=== PATIENT | female | born 1960 | race African-American/Black ===

== ENCOUNTER 2017-10-13 15:42 | Outpatient (CLI) | payer MEDICARE, MEDICAID | END 2017-10-13 15:43 | disposition home or self-care (01) | LOC: BICMAMMO 15:42 | PROVIDERS: ATTEND Internal Medicine | DX: Z12.31 Encounter for screening mammogram for malignant neoplasm of breast (principal); Z80.3 Family history of malignant neoplasm of breast | CPT/HCPCS: 77063; 77067 ==

== ENCOUNTER 2017-10-13 16:26 | Outpatient (CLI) | payer MEDICARE, MEDICAID | END 2017-10-13 16:27 | disposition home or self-care (01) | LOC: BICRAD 16:26 | PROVIDERS: ATTEND Anesthesiology | DX: M47.896 Other spondylosis, lumbar region (principal) | CPT/HCPCS: 72100 ==

== ENCOUNTER 2017-11-20 14:09 | Outpatient (CLI) | payer MEDICARE, MEDICAID | END 2017-11-20 14:10 | disposition home or self-care (01) | LOC: BICRAD 14:09 | PROVIDERS: ATTEND Anesthesiology | DX: M25.562 Pain in left knee (principal); M25.561 Pain in right knee; M25.571 Pain in right ankle and joints of right foot; M17.11 Unilateral primary osteoarthritis, right knee; M25.771 Osteophyte, right ankle; Z96.652 Presence of left artificial knee joint; Z98.1 Arthrodesis status ==

== ENCOUNTER 2018-08-02 14:50 | Outpatient (CLI) | payer MEDICARE, MEDICAID ==
--- NOTE | 2018-08-02 16:04 | RAD ---
LEFT KNEE FOUR VIEWS: History: Left knee pain. Comparison: 12-25-08 FINDINGS: Post op total knee arthroplasty changes with revisions since the prior study. No evidence for disloca tion. No periprosthetic fracture. No dislocation. IMPRESSION: Status post total knee arthroplasty changes. No acute process. POS: [facility]
== END 2018-08-02 14:51 | disposition home or self-care (01) ==
LOC: BICRAD 14:50
DX: M25.562 Pain in left knee (principal); Z96.652 Presence of left artificial knee joint

== ENCOUNTER 2019-02-22 12:43 | Outpatient (CLI) | payer MEDICARE, MEDICAID ==
--- NOTE | 2019-02-22 13:30 | MMO ---
Bilateral MAMMO Bilat Screen [facility]. CLINICAL HISTORY: Patient is 58 years old and is seen for screening. The patient has the following family history of breast cancer: niece, at age 30, malignant (generic). The patient has no personal history of cancer. VIEWS: The views performed were: bilateral craniocaudal with tomosynthesis and bilateral mediolateral oblique with tomosynthesis. FILMS COMPARED: The present examination has been compared to prior imaging studies performed at [facility] on 03/17/2012, 02/02/2014, 02/21/2016 and 10/13/2017. This study has been interpreted with the assistance of computer-aided detection. MAMMOGRAM FINDINGS: There are scattered fibroglandular densities. There are stable benign appearing calcifications seen in both breasts. There are no suspicious masses, suspicious calcifications, or new areas of architectural distortion. IMPRESSION: THERE IS NO MAMMOGRAPHIC EVIDENCE OF MALIGNANCY. A ROUTINE FOLLOW-UP MAMMOGRAM IN 1 YEAR IS RECOMMENDED. THE RESULTS OF THIS EXAM WERE SENT TO THE PATIENT. ACR BI-RADS Category 2 - Benign finding MAMMOGRAPHY NOTE: 1. A negative mammogram report should not delay a biopsy if a dominant of clinically suspicious mass is present. 2. Approximately 10% to 15% of breast cancers are not detected by mammography. 3. Adenosis and dense breasts may obscure an underlying neoplasm. Reported by: SUELLEN ENRIQUE MD Electonically Signed: [id number]
== END 2019-02-22 12:44 | disposition home or self-care (01) ==
LOC: BICMAMMO 12:43
PROVIDERS: ATTEND Internal Medicine
DX: Z12.31 Encounter for screening mammogram for malignant neoplasm of breast (principal); Z80.3 Family history of malignant neoplasm of breast
CPT/HCPCS: 77063; 77067

== ENCOUNTER 2019-07-18 09:16 | Outpatient (CLI) | payer MEDICARE, MEDICAID ==
--- NOTE | 2019-07-18 14:41 | NM ---
WHOLE BODY BONE SCAN WITH TRIPLE PHASE IMAGING FOR THE KNEES: HISTORY: Bilateral knee pain, orthopedic prosthetic device/graft. FINDINGS: No abnormal blood flow is seen through the knee. Delayed images demonstrate great uptake in the righ t knee, both ankles, and both shoulders consistent with degenerative changes. There are postop peralta es of left knee arthroplasty. Tracer excretion through the kidneys is within normal limits. Focal i ncreased uptake in the right mandible is consistent with periodontal disease. IMPRESSION: 1. No evidence of infection or loosening in the left knee prosthesis. 2. Findings are consistent with right knee osteoarthritis. POS: [facility]
== END 2019-07-18 09:17 | disposition home or self-care (01) ==
LOC: NM 09:16
PROVIDERS: ATTEND Family Medicine
DX: T84.84XA Pain due to internal orthopedic prosthetic devices, implants and grafts, initial encounter (principal); M25.562 Pain in left knee; Z96.652 Presence of left artificial knee joint; Z91.81 History of falling
CPT/HCPCS: 78315; A9503

== ENCOUNTER 2020-04-10 10:48 | Outpatient (CLI) | payer MEDICARE, MEDICAID ==
--- NOTE | 2020-04-10 11:43 | MMO ---
Bilateral MAMMO Bilat Screen [facility]. CLINICAL HISTORY: Patient is 59 years old and is seen for screening. The patient has the following family history of breast cancer: niece, at age 30, malignant (generic). The patient has no personal history of cancer. VIEWS: The views performed were: bilateral craniocaudal with tomosynthesis and bilateral mediolateral oblique with tomosynthesis. FILMS COMPARED: The present examination has been compared to prior imaging studies performed at [facility] on 02/02/2014, 02/21/2016, 10/13/2017 and 02/22/2019. This study has been interpreted with the assistance of computer-aided detection. MAMMOGRAM FINDINGS: There are scattered fibroglandular densities. Benign calcifications are noted bilaterally. Nodularity is stable. There are no suspicious masses, suspicious calcifications, or new areas of architectural distortion. IMPRESSION: THERE IS NO MAMMOGRAPHIC EVIDENCE OF MALIGNANCY. A ROUTINE FOLLOW-UP MAMMOGRAM IN 1 YEAR IS RECOMMENDED. THE RESULTS OF THIS EXAM WERE SENT TO THE PATIENT. ACR BI-RADS Category 2 - Benign finding MAMMOGRAPHY NOTE: 1. A negative mammogram report should not delay a biopsy if a dominant of clinically suspicious mass is present. 2. Approximately 10% to 15% of breast cancers are not detected by mammography. 3. Adenosis and dense breasts may obscure an underlying neoplasm. Reported by: NORRIS BLACK MD Electonically Signed: [id number]
== END 2020-04-10 10:49 | disposition home or self-care (01) ==
LOC: BICMAMMO 10:48
PROVIDERS: ATTEND Nurse Practitioner Family
DX: Z12.31 Encounter for screening mammogram for malignant neoplasm of breast (principal); Z80.3 Family history of malignant neoplasm of breast
CPT/HCPCS: 77063; 77067

== ENCOUNTER 2020-10-26 14:52 | Outpatient (CLI) | payer MEDICARE, MEDICAID | END 2020-10-26 14:53 | disposition home or self-care (01) | LOC: BICRAD 14:52 | PROVIDERS: ATTEND Nurse Practitioner Family | DX: M79.671 Pain in right foot (principal); M79.641 Pain in right hand; M19.071 Primary osteoarthritis, right ankle and foot; M18.11 Unilateral primary osteoarthritis of first carpometacarpal joint, right hand; M19.041 Primary osteoarthritis, right hand; Z98.1 Arthrodesis status ==

== ENCOUNTER 2021-03-20 14:52 | Outpatient (CLI) | payer MEDICARE, MEDICAID | END 2021-03-20 14:53 | disposition home or self-care (01) | LOC: BICRAD 14:52 | PROVIDERS: ATTEND Nurse Practitioner Family | DX: M25.512 Pain in left shoulder (principal) ==

== ENCOUNTER 2021-04-23 13:33 | Outpatient (CLI) | payer MEDICARE, MEDICAID | END 2021-04-23 13:34 | disposition home or self-care (01) | LOC: BICMAMMO 13:33 | PROVIDERS: ATTEND Nurse Practitioner Family | DX: Z12.31 Encounter for screening mammogram for malignant neoplasm of breast (principal); Z80.3 Family history of malignant neoplasm of breast | CPT/HCPCS: 77063; 77067 ==

== ENCOUNTER 2021-11-08 07:37 | Outpatient (CLI) | payer MEDICARE, MEDICAID | END 2021-11-08 07:38 | disposition home or self-care (01) | LOC: BICMRI 07:37 | PROVIDERS: ATTEND Registered Nurse Pain Management | DX: M17.11 Unilateral primary osteoarthritis, right knee (principal); S83.241A Other tear of medial meniscus, current injury, right knee, initial encounter; M71.21 Synovial cyst of popliteal space [Baker], right knee; M67.461 Ganglion, right knee ==

== ENCOUNTER 2022-05-14 14:18 | Outpatient (CLI) | payer MEDICARE, MEDICAID | END 2022-05-14 14:19 | disposition home or self-care (01) | LOC: BICRAD 14:18 | PROVIDERS: ATTEND Nurse Practitioner Family | DX: M54.50 Low back pain, unspecified (principal); M47.816 Spondylosis without myelopathy or radiculopathy, lumbar region | CPT/HCPCS: 72110 ==

== ENCOUNTER 2023-10-07 11:56 | Outpatient (CLI) | payer MEDICARE | END 2023-10-07 11:57 | disposition home or self-care (01) | LOC: BICMAMMO 11:56 | PROVIDERS: ATTEND Nurse Practitioner Family | DX: Z12.31 Encounter for screening mammogram for malignant neoplasm of breast (principal); N63.20 Unspecified lump in the left breast, unspecified quadrant; Z80.3 Family history of malignant neoplasm of breast | CPT/HCPCS: 77063; 77067 ==

== ENCOUNTER 2023-10-13 11:09 | Outpatient (CLI) | payer MEDICARE | END 2023-10-13 11:10 | disposition home or self-care (01) | LOC: BICULT 11:09 | PROVIDERS: ATTEND Nurse Practitioner Family | DX: N63.20 Unspecified lump in the left breast, unspecified quadrant (principal) ==

== ENCOUNTER → 2023-11-13 | Day surgery (SDC) | payer MEDICARE | LOC: BICULT 12:48 | PROVIDERS: ATTEND Nurse Practitioner Family | PROC: 0H9U3ZX Drainage of Left Breast, Percutaneous Approach, Diagnostic (ICD-10-PCS; principal; 2023-11-13) | DX: R92.8 Other abnormal and inconclusive findings on diagnostic imaging of breast (principal) | CPT/HCPCS: 19083; 88305 ==

== ENCOUNTER 2024-05-02 05:59 | Day surgery (SDC) | payer MEDICARE, OTHER ==
[2024-05-02] MEDS ORDERED: Ketamine In 0.9 % NaCl 50 MG/5 ML SYRINGE ONE (07:36)
[2024-05-02] MEDS ORDERED: Midazolam HCl 2 mg/2 ml Vial ONE (07:39)
[2024-05-02] MEDS ORDERED: PROPOFOL 20 ML ONE ×2 (07:40→08:05)
== END 2024-05-02 09:15 | disposition home or self-care (01) ==
LOC: SDC 05:59 → UNDOADMIN 06:06 → SURG A 06:06 → SDC 09:15 → UNDODISIN 09:15
PROVIDERS: ATTEND Internal Medicine Gastroenterology
PROC: 0DB48ZX Excision of Esophagogastric Junction, Via Natural or Artificial Opening Endoscopic, Diagnostic (ICD-10-PCS; principal; 2024-05-02)
PROC: 0D718ZZ Dilation of Upper Esophagus, Via Natural or Artificial Opening Endoscopic (ICD-10-PCS; 2024-05-02)
PROC: 0DJD8ZZ Inspection of Lower Intestinal Tract, Via Natural or Artificial Opening Endoscopic (ICD-10-PCS; 2024-05-02)
DX: Z12.11 Encounter for screening for malignant neoplasm of colon (principal); K21.00 Gastro-esophageal reflux disease with esophagitis, without bleeding; K57.30 Diverticulosis of large intestine without perforation or abscess without bleeding; I10 Essential (primary) hypertension; E66.01 Morbid (severe) obesity due to excess calories; Z68.41 Body mass index [BMI] 40.0-44.9, adult; Z86.0100 Personal history of colon polyps, unspecified; Z96.652 Presence of left artificial knee joint; Z87.59 Personal history of other complications of pregnancy, childbirth and the puerperium; Z87.891 Personal history of nicotine dependence; Z88.8 Allergy status to other drugs, medicaments and biological substances; Z79.899 Other long term (current) drug therapy
CPT/HCPCS: 43239; 43248; G0105; J2250; J2704; J3490; 88305; 88313

== ENCOUNTER 2024-06-01 15:04 | Outpatient (CLI) | payer OTHER | END 2024-06-01 15:05 | disposition home or self-care (01) | LOC: BICRAD 15:04 | PROVIDERS: ATTEND Nurse Practitioner Family | DX: Z11.1 Encounter for screening for respiratory tuberculosis (principal) | CPT/HCPCS: 71046 ==

== ENCOUNTER 2025-01-05 07:43 | Outpatient (CLI) | payer OTHER ==
[2025-01-05] MEDS ORDERED: E-Z-HD 98% W/W 340GM BOT (x-ray ONLY) ONE (08:02)
[2025-01-05] MEDS ORDERED: Barium Sulfate 96% 176 GM BOT (xray ONLY) ONE (08:02)
== END 2025-01-05 07:44 | disposition home or self-care (01) ==
LOC: RAD 07:43
PROVIDERS: ATTEND Specialist
DX: K21.9 Gastro-esophageal reflux disease without esophagitis (principal); K31.89 Other diseases of stomach and duodenum
CPT/HCPCS: 74246

== ENCOUNTER 2025-01-25 14:03 | Outpatient (CLI) | payer OTHER | END 2025-01-25 14:04 | disposition home or self-care (01) | LOC: BICRAD 14:03 | DX: M25.562 Pain in left knee (principal); M25.561 Pain in right knee; M17.11 Unilateral primary osteoarthritis, right knee ==